=== PATIENT | female | born 1960 | race Caucasian/White ===

== ENCOUNTER → 2020-05-20 | Outpatient (CLI) | payer OTHER ==
[~2020-05-20] MED LIST: AFRIN15 ML NS; FLONASE 0.05%50 MCG NASAL; LEVOTHYROXIN0.125 M1 PO; SALINE WOUND W210 ML NASAL
[2020-05-20 10:41] LABS: CREATININE 0.9 mg/dL (0.6-1.0)
== END ==
LOC: MRI 09:38
PROVIDERS: ATTEND Ophthalmology
DX: H53.452 Other localized visual field defect, left eye (principal); E05.00 Thyrotoxicosis with diffuse goiter without thyrotoxic crisis or storm; R90.82 White matter disease, unspecified; H05.20 Unspecified exophthalmos; H57.89 Other specified disorders of eye and adnexa